=== PATIENT | female | born 1945 | race Caucasian/White ===

== ENCOUNTER 2017-03-11 09:45 | Outpatient (CLI) | payer OTHER | END 2017-03-11 19:04 | disposition home or self-care (01) | LOC: SUS 09:45 | PROVIDERS: ATTEND Internal Medicine | DX: N64.4 Mastodynia (principal) | CPT/HCPCS: 76642 ==

== ENCOUNTER 2018-06-16 11:19 | Outpatient (CLI) | payer BC | END 2018-06-16 21:06 | disposition home or self-care (01) | LOC: SMA 11:19 | PROVIDERS: ATTEND Internal Medicine | DX: Z12.31 Encounter for screening mammogram for malignant neoplasm of breast (principal) | CPT/HCPCS: 77067 ==

== ENCOUNTER 2020-08-20 16:02 | Inpatient (IN) | payer BC ==
[~2020-08-20] VITALS: Ht 152.4 cm; Wt 115.0 kg
[2020-08-20 16:20] VITALS: BP_SYST 219
[2020-08-20 16:51] LABS: BASOPHILS % (AUTO) 0.7 % (0.0-2.0); EOSINOPHILS # (AUTO) 0.1 K/uL (0.0-0.4); EOSINOPHILS % (AUTO) 2.1 % (0.0-4.0); HEMATOCRIT 38.6 % (36-48); HEMOGLOBIN 12.5 g/dL (12.0-16.0); LYMPHOCYTES # (AUTO) 2.1 K/uL (1.0-5.5); MEAN CORPUSCULAR HEMOGLOBIN 28 pg (27-31); MEAN CORPUSCULAR HGB CONC 33 % (32-36); MEAN CORPUSCULAR VOLUME 87 fL (79.0-98.0); MONOCYTES # (AUTO) 0.6 K/uL (0.0-1.0); MONOCYTES % (AUTO) 9.3 % (1.7-9.3); NEUTROPHILS % (AUTO) 57.9 % (40.0-70.0); PLATELET COUNT (AUTO) 230 K/uL (130-430); RED BLOOD CELL COUNT(AUTO) 4.46 MIL/uL (4.2-6.2); RED CELL DISTRIBUTION WIDTH 15.7 % (9.0-15.0); WHITE BLOOD COUNT (AUTO) 6.8 K/uL (4.8-10.8)
[2020-08-20 16:59] LABS: ANION GAP -1 (5-15); CHLORIDE 104 mmol/L (98-107); CREATININE 0.95 mg/dL (0.55-1.30); GLUCOSE 99 mg/dL (70-99); SODIUM SERUM 142 mmol/L (136-145); UREA NITROGEN, BLOOD 18 mg/dL (8-21)
[2020-08-20] MEDS ORDERED: FUROSEMIDE 40 MG/4 ML VIAL IVP ONE (17:00)
[2020-08-20 17:06] LABS: ALANINE AMINOTRANSFERASE 38 U/L (12-78); ALBUMIN 3.2 g/dL (3.4-4.8); ASPARTATE AMINOTRANSFERASE 27 U/L (10-37); TOTAL BILIRUBIN 0.3 mg/dL (0.0-1.0)
[2020-08-20] MEDS ORDERED: IOHEXOL 350 mgI/mL, 150 ML INFUS..BTL IV ONE (18:05)
[2020-08-20] MEDS ORDERED: methylPREDNISolone SOD SUCC/PF 62.5 MG/ML VIAL IVP ONE (19:15)
[2020-08-20 20:49] VITALS: BP_SYST 158
[2020-08-20] MEDS ORDERED: ALBUTEROL SULFATE 0.083% 2.5 MG/3 ML VIAL.NEB INH PRN (23:30)
[2020-08-20] MEDS ORDERED: HYDROcodone/ACETAMIN 5-325 MG TAB (NORCO/ VICODIN) PO PRN (23:30)
[2020-08-20] MEDS ORDERED: NALOXONE HCL 0.4 MG/ML AMP (NARCAN) IVP PRN (23:30)
[2020-08-21] VITALS: BP_SYST 145
[2020-08-21] MEDS ORDERED: AZITHROMYCIN 500 MG in NS 250 ML IV ONE ×2
[2020-08-21] MEDS ORDERED: AZITHROMYCIN 500 MG/VIAL (ZITHROMAX) IV ONE (00:13)
[2020-08-21] MEDS ORDERED: hydrALAZINE HCL 25 MG TABLET PO ONE (02:15)
[2020-08-21 02:56] VITALS: BP_SYST 159
[2020-08-21] MEDS ORDERED: NORMAL SALINE 5 ML DISP.SYRIN IVF SCH (06:00)
[2020-08-21] MEDS: INSULIN REGULAR, HUMAN 100 UNITS/ML, 10 ML VIAL (humuLIN R) SUBCUT PRN ×2 (06:21→12:30)
[2020-08-21 06:36] LABS: BASOPHILS % (AUTO) 0.1 % (0.0-2.0); EOSINOPHILS % (AUTO) 0.1 % (0.0-4.0); HEMATOCRIT 40.3 % (36-48); HEMOGLOBIN 12.8 g/dL (12.0-16.0); LYMPHOCYTES # (AUTO) 0.7 K/uL (1.0-5.5); LYMPHOCYTES % (AUTO) 8.5 % (20.5-51.5); MEAN CORPUSCULAR HEMOGLOBIN 28 pg (27-31); MEAN CORPUSCULAR HGB CONC 32 % (32-36); MEAN CORPUSCULAR VOLUME 88 fL (79.0-98.0); MONOCYTES # (AUTO) 0.1 K/uL (0.0-1.0); MONOCYTES % (AUTO) 0.9 % (1.7-9.3); NEUTROPHILS # (AUTO) 7.2 K/uL (1.8-7.7); NEUTROPHILS % (AUTO) 90.4 % (40.0-70.0); PLATELET COUNT (AUTO) 237 K/uL (130-430); RED BLOOD CELL COUNT(AUTO) 4.58 MIL/uL (4.2-6.2)
[2020-08-21 07:44] LABS: ALANINE AMINOTRANSFERASE 35 U/L (12-78); ALBUMIN 2.8 g/dL (3.4-4.8); ANION GAP 6 (5-15); ASPARTATE AMINOTRANSFERASE 27 U/L (10-37); CALCIUM 8.7 mg/dL (8.4-11.0); CHLORIDE 104 mmol/L (98-107); CREATININE 0.91 mg/dL (0.55-1.30); GLUCOSE 253 mg/dL (70-99); POTASSIUM 4.1 mmol/L (3.5-5.1); SODIUM SERUM 145 mmol/L (136-145); TOTAL BILIRUBIN 0.2 mg/dL (0.0-1.0); UREA NITROGEN, BLOOD 21 mg/dL (8-21)
[2020-08-21 08:00] VITALS: BP_SYST 136
[2020-08-21] MEDS ORDERED: ACETAMINOPHEN 325 MG TABLET PO PRN (08:45)
[2020-08-21] MEDS ORDERED: ALBUTEROL SULFATE 0.083% 2.5 MG/3 ML VIAL.NEB INH PRN (08:45)
[2020-08-21] MEDS ORDERED: ONDANSETRON HCL 4 MG/2 ML VIAL IVP PRN (08:45)
[2020-08-21] MEDS ORDERED: METOPROLOL TARTRATE 25 MG TABLET PO ONE (09:00)
[2020-08-21] MEDS ORDERED: methylPREDNISolone SOD SUCC 40 MG/ML VIAL IVP ONE (09:00)
[2020-08-21] MEDS ORDERED: cefTRIAXone 1 GM IVPB PREMIX 50 ML IV SCH (09:00)
[2020-08-21] MEDS ORDERED: FUROSEMIDE 20 MG/2 ML VIAL IVP SCH ×2 (09:00→21:00)
[2020-08-21] MEDS ORDERED: FAMOTIDINE 20 MG TABLET PO ONE (09:00)
[2020-08-21] MEDS ORDERED: FUROSEMIDE 20 MG/2 ML VIAL IVP ONE (09:00)
[2020-08-21] MEDS ORDERED: ENOXAPARIN SODIUM 40 MG/0.4 ML SYRINGE SUBCUT ONE (09:00)
[2020-08-21 12:00] VITALS: BP_SYST 127
[2020-08-21] MEDS ORDERED: HYDR-4038 PO (12:01)
[2020-08-21] MEDS ORDERED: CALCIUM PO (12:01)
[2020-08-21] MEDS ORDERED: GLIP5TAB13 PO (12:01)
[2020-08-21] MEDS ORDERED: GLU500 PO (12:01)
[2020-08-21] MEDS ORDERED: METF1000 PO (12:01)
[2020-08-21] MEDS ORDERED: CHOL200019 PO (12:01)
[2020-08-21] MEDS ORDERED: SIMV-43 PO (12:03)
[2020-08-21] MEDS ORDERED: VALS320T2 PO (12:03)
[2020-08-21] MEDS ORDERED: MULT-1089 PO (12:03)
[2020-08-21] MEDS ORDERED: HYDR25TA4 PO (12:03)
[2020-08-21 14:24] VITALS: BP_SYST 127
[2020-08-21] MEDS ORDERED: ALBMDI INH (14:52)
[2020-08-21] MEDS ORDERED: FURO-150 PO (14:52)
[2020-08-21] MEDS ORDERED: AZIT500T3 PO (14:52)
[2020-08-21] MEDS ORDERED: hydrALAZINE HCL 25 MG TABLET PO SCH (15:00)
[2020-08-21] MEDS ORDERED: metFORMIN HCL 500 MG TABLET PO SCH (18:00)
[2020-08-21] MEDS ORDERED: AZITHROMYCIN 500 MG in NS 250 ML IV SCH (21:00)
[2020-08-21] MEDS ORDERED: METOPROLOL TARTRATE 25 MG TABLET PO SCH (21:00)
[2020-08-21] MEDS ORDERED: methylPREDNISolone SOD SUCC 40 MG/ML VIAL IVP SCH (21:00)
[2020-08-21] MEDS ORDERED: SIMVASTATIN 20 MG TABLET PO SCH (21:00)
[2020-08-22] MEDS ORDERED: VALSARTAN 160 MG TABLET (DIOVAN) PO SCH (09:00)
[2020-08-22] MEDS ORDERED: LOSARTAN POTASSIUM 50 MG TABLET (COZAAR) PO SCH (09:00)
[2020-08-22] MEDS ORDERED: ENOXAPARIN SODIUM 40 MG/0.4 ML SYRINGE SUBCUT SCH (09:00)
[2020-08-22] MEDS ORDERED: FUROSEMIDE 40 MG TABLET PO SCH (09:00)
[2020-08-22] MEDS ORDERED: HYDROCHLOROTHIAZIDE 25 MG TABLET (HCTZ) PO SCH (09:00)
[2020-08-22] MEDS ORDERED: FAMOTIDINE 20 MG TABLET PO SCH (09:00)
[2020-08-22] MEDS ORDERED: metFORMIN HCL 500 MG TABLET PO SCH (09:00)
== END 2020-08-21 15:05 | disposition home or self-care (01) | DRG 206 ==
LOC: SED 16:02 → STU 20:16
PROVIDERS: ADMIT Internal Medicine Hospice and Palliative Medicine; ATTEND Internal Medicine Hospice and Palliative Medicine
DX: M94.0 Chondrocostal junction syndrome [Tietze] (principal); E87.1 Hypo-osmolality and hyponatremia; Z68.42 Body mass index [BMI] 45.0-49.9, adult; E46 Unspecified protein-calorie malnutrition; E44.1 Mild protein-calorie malnutrition; E11.9 Type 2 diabetes mellitus without complications; J45.909 Unspecified asthma, uncomplicated; I45.10 Unspecified right bundle-branch block; E66.01 Morbid (severe) obesity due to excess calories; G47.30 Sleep apnea, unspecified; I11.0 Hypertensive heart disease with heart failure; I50.9 Heart failure, unspecified; Z20.822 Contact with and (suspected) exposure to COVID-19; E78.5 Hyperlipidemia, unspecified; R09.02 Hypoxemia; R06.89 Other abnormalities of breathing
CPT/HCPCS: 36415; 71045; 71275; 76376; 80053; 82550; 82962; 83036; 83880; 84134; 84484; 85025; 85379; 93005; 93970; 96374; 96375; 99285; G0378; J0456; J0696; J1030; J1650; J1815; J1940; J2930; J7050; Q9967; U0003

== ENCOUNTER 2023-06-02 12:41 | Inpatient (IN) | payer OTHER, MEDICAID ==
[~2023-06-02] VITALS: Ht 162.6 cm; Wt 108.9 kg
[~2023-06-02 12:41] MED LIST: ALBMDI INH; ASPI-859 PO; CALC-939 PO; CALCIUM PO; CARV3.1246 PO; CHOL200019 PO; CLOP75TA32 PO; FURO-149 PO; GLIP5TAB13 PO; GLU500 PO; HYDR-4038 PO; HYDR25TA4 PO; LIP40 PO; LOSA-415 PO; METF1000 PO; MULT-1089 PO; POTA8TAB66 PO
[2023-06-02 13:00] VITALS: BP_SYST 137; PULSE 68; RESP 18; TEMP 97; O2SAT 74
[2023-06-02] MEDS ORDERED: LevALBUTEROL HCL 1.25 MG/0.5 ML *CONC.* VIAL.NEB (XOPENEX CONC.) INH ONE (14:21)
[2023-06-02 15:11] LABS: BASOPHILS % (AUTO) 0.7 % (0.0-2.0); EOSINOPHILS # (AUTO) 0.1 K/uL (0.0-0.4); EOSINOPHILS % (AUTO) 2.1 % (0.0-4.0); HEMATOCRIT 40.4 % (36-48); HEMOGLOBIN 12.8 g/dL (12.0-16.0); LYMPHOCYTES # (AUTO) 1.6 K/uL (1.0-5.5); LYMPHOCYTES % (AUTO) 28.5 % (20.5-51.5); MEAN CORPUSCULAR HEMOGLOBIN 28 pg (27-31); MEAN CORPUSCULAR HGB CONC 32 % (32-36); MEAN CORPUSCULAR VOLUME 87 fL (79.0-98.0); MONOCYTES # (AUTO) 0.6 K/uL (0.0-1.0); MONOCYTES % (AUTO) 11.3 % (1.7-9.3); NEUTROPHILS # (AUTO) 3.3 K/uL (1.8-7.7); NEUTROPHILS % (AUTO) 57.4 % (40.0-70.0); PLATELET COUNT (AUTO) 188 K/uL (130-430); RED BLOOD CELL COUNT(AUTO) 4.62 MIL/uL (4.2-6.2); RED CELL DISTRIBUTION WIDTH 16.8 % (9.0-15.0); WHITE BLOOD COUNT (AUTO) 5.7 K/uL (4.8-10.8)
[2023-06-02] MEDS: DEXAMETHASONE SOD PHOSPHATE 10 MG/ML VIAL IVP ONE (15:30)
[2023-06-02] MEDS: KETOROLAC TROMETHAMINE 30 MG VIAL IVP ONE (15:30)
[2023-06-02 15:35] LABS: ANION GAP 4 (5-15); CARBON DIOXIDE 35 mmol/L (23-29); CHLORIDE 106 mmol/L (98-107); GLUCOSE 159 mg/dL (74-106); POTASSIUM 4.8 mmol/L (3.5-5.1); SODIUM SERUM 145 mmol/L (136-145); UREA NITROGEN, BLOOD 20 mg/dL (8-21)
[2023-06-02 15:43] LABS: ALANINE AMINOTRANSFERASE 31 U/L (12-78); ASPARTATE AMINOTRANSFERASE 19 U/L (10-37); BILIRUBIN,DIRECT 0.2 mg/dL (0.0-0.3); TOTAL BILIRUBIN 0.5 mg/dL (0.0-1.0)
[2023-06-02 16:04] LABS: INR 1.1 (0.8-1.2); PROTHROMBIN TIME 11.1 SECS (9.5-12.5)
[2023-06-02 16:25] LABS: INFLUENZA TYPE A Negative (NEGATIVE); INFLUENZA TYPE B NEGATIVE (NEGATIVE)
[2023-06-02 16:32] LABS: BILIRUBIN,URINE NEGATIVE (NEGATIVE); BLOOD, URINE NEGATIVE (NEGATIVE); CLARITY/URINE CLOUDY (CLEAR); COLOR,URINE YELLOW (YELLOW); GLUCOSE,URINE 3+ (NEGATIVE); KETONES,URINE NEGATIVE (NEGATIVE); LEUKOCYTE ESTERASE ,URINE NEGATIVE (NEGATIVE); NITRITE, URINE NEGATIVE (NEGATIVE); PROTEIN URINE 2+ (NEGATIVE); UROBILINOGEN,URINE 0.2 (0.2-1.0)
[2023-06-02] MEDS: LevALBUTEROL HCL 1.25 MG/0.5 ML *CONC.* VIAL.NEB (XOPENEX CONC.) INH ONE (16:36)
[2023-06-02 16:38] VITALS: BP_SYST 154; PULSE 66; O2SAT 95
[2023-06-02] MEDS ORDERED: CARV12.548 PO (16:42)
[2023-06-02] MEDS ORDERED: VALS320T16 PO (16:42)
[2023-06-02] MEDS ORDERED: ASPI-1393 PO (16:42)
[2023-06-02] MEDS ORDERED: DAPA10TA PO (16:42)
[2023-06-02] MEDS ORDERED: POTA-178 PO (16:42)
[2023-06-02] MEDS ORDERED: FURO40TA5 PO (16:42)
[2023-06-02] MEDS ORDERED: VITD2000 PO (16:42)
[2023-06-02] MEDS ORDERED: METF-381 PO (16:42)
[2023-06-02] MEDS ORDERED: ATOR40TA68 PO (16:45)
[2023-06-02] MEDS ORDERED: HYDR-4039 PO (16:45)
[2023-06-02] MEDS ORDERED: GLIP-201 PO (16:46)
[2023-06-02] MEDS ORDERED: AZITHROMYCIN 500 MG/VIAL (ZITHROMAX) IV ONE ×2 (16:49→20:05)
[2023-06-02] MEDS ORDERED: AZITHROMYCIN 250 MG in NS 250 ML IV SCH (17:00)
[2023-06-02 17:13] LABS: RBC,URINE 0-3 /HPF (0-3); WBC,URINE 50-80 /HPF (0-3)
[2023-06-02 17:14] LABS: BACTERIA,URINE MANY /HPF (None Seen); MUCUS,URINE None Seen /LPF (None Seen)
[2023-06-02] MEDS: METHYLPREDNISOLONE SOD SUCC 40 MG/ML VIAL IVP ONE (17:21)
[2023-06-02] MEDS: FUROSEMIDE 40 MG/4 ML VIAL IVP ONE (17:21)
[2023-06-02] MEDS: AZITHROMYCIN 500 MG in NS 250 ML IV SCH (17:23)
[2023-06-02] MEDS: cefTRIAXone 1 GM IVPB PREMIX 50 ML IV SCH (20:05)
[2023-06-02 20:10] VITALS: O2SAT 95
[2023-06-02] MEDS: IPRATROPIUM/ALBUTEROL SULFATE 3 ML AMPUL.NEB (DUONEB) INH SCH (20:28)
[2023-06-02] MEDS: METHYLPREDNISOLONE SOD SUCC 40 MG/ML VIAL IVP SCH (21:21)
[2023-06-02 23:00] VITALS: O2SAT 96
[2023-06-03] VITALS (11 sets, daily range): BP systolic 126–158; PULSE 67–77; RESP 16–24; TEMP 96.9–98.7; O2SAT 92–97
[2023-06-03] MEDS ORDERED: METHYLPREDNISOLONE SOD SUCC 40 MG/ML VIAL ONE (06:19)
[2023-06-03] MEDS ORDERED: ALBUTEROL MDI INHALATION 8 GM INH INH SCH (10:00)
[2023-06-03] MEDS ORDERED: BUMEX 1 MG/4 ML VIAL IVP ONE (10:00)
[2023-06-03] MEDS ORDERED: hydrALAZINE HCL 25 MG TABLET PO PRN (11:30)
[2023-06-03] MEDS ORDERED: ALBUTEROL SULFATE 0.083% 2.5 MG/3 ML VIAL.NEB INH PRN (12:15)
[2023-06-03 14:38] LABS: ABG O2 SAT% ESTIMATE 94.8 % (94.0-100.0); BLOOD GAS BASE EXCESS 2.5 mmol/L (-3.0-3.0); BLOOD GAS HCO3 30.6 mmol/L (21.0-27.0); BLOOD GAS PO2 81.6 mmHg (75.0-100.0)
[2023-06-03 14:42] LABS: ALLEN'S TEST POSITIVE (P); BLOOD GAS PCO2 62.1 mmHg (35.0-45.0)
[2023-06-03] MEDS ORDERED: hydrALAZINE HCL 25 MG TABLET PO SCH ×2 (15:00)
[2023-06-03] MEDS: metFORMIN HCL 500 MG TABLET PO SCH (18:06)
[2023-06-03] MEDS: BUMEX 1 MG/4 ML VIAL IVP SCH (18:25)
[2023-06-03] MEDS: CARVEDILOL 12.5 MG TABLET (COREG) PO SCH (20:37)
[2023-06-03] MEDS: POTASSIUM CHLORIDE 10 MEQ TABLET.ER PO SCH (20:37)
[2023-06-03] MEDS: LOSARTAN POTASSIUM 50 MG TABLET (COZAAR) PO SCH (20:37)
[2023-06-03] MEDS: METHYLPREDNISOLONE SOD SUCC 40 MG/ML VIAL IVP SCH (20:38)
[2023-06-03] MEDS ORDERED: CARVEDILOL 3.125 MG TABLET (COREG) PO SCH (21:00)
[2023-06-03] MEDS ORDERED: glipiZIDE XL 5 MG TAB ( GLUCOTROL XL) PO SCH (21:00)
[2023-06-04] VITALS (10 sets, daily range): BP systolic 111–153; PULSE 62–81; RESP 14–20; TEMP 97.1–97.9; O2SAT 93–99
[2023-06-04 05:47] LABS: HEMATOCRIT 39.9 % (36-48); HEMOGLOBIN 12.6 g/dL (12.0-16.0); LYMPHOCYTES % (AUTO) 14.2 % (20.5-51.5); MEAN CORPUSCULAR HEMOGLOBIN 27 pg (27-31); MEAN CORPUSCULAR HGB CONC 32 % (32-36); MEAN CORPUSCULAR VOLUME 87 fL (79.0-98.0); MONOCYTES # (AUTO) 0.2 K/uL (0.0-1.0); MONOCYTES % (AUTO) 2.4 % (1.7-9.3); NEUTROPHILS # (AUTO) 5.7 K/uL (1.8-7.7); NEUTROPHILS % (AUTO) 83.4 % (40.0-70.0); PLATELET COUNT (AUTO) 195 K/uL (130-430); RED BLOOD CELL COUNT(AUTO) 4.61 MIL/uL (4.2-6.2); RED CELL DISTRIBUTION WIDTH 16.7 % (9.0-15.0); WHITE BLOOD COUNT (AUTO) 6.9 K/uL (4.8-10.8)
[2023-06-04 06:13] LABS: ANION GAP 4 (5-15); CALCIUM 8.7 mg/dL (8.4-11.0); CARBON DIOXIDE 33 mmol/L (23-29); CHLORIDE 104 mmol/L (98-107); CREATININE 1.03 mg/dL (0.55-1.30); GLUCOSE 256 mg/dL (74-106); POTASSIUM 5.4 mmol/L (3.5-5.1); SODIUM SERUM 141 mmol/L (136-145); UREA NITROGEN, BLOOD 41 mg/dL (8-21)
[2023-06-04] MEDS ORDERED: HYDROCHLOROTHIAZIDE 25 MG TABLET (HCTZ) PO SCH (09:00)
[2023-06-04] MEDS ORDERED: POTASSIUM CHLORIDE 8 MEQ TABLET.ER PO SCH (09:00)
[2023-06-04] MEDS ORDERED: ASPIRIN 81 MG TABLET(ECOTRIN) PO SCH (09:00)
[2023-06-04] MEDS ORDERED: ATORVASTATIN 20 MG TABLET PO SCH (09:00)
[2023-06-04] MEDS: ASPIRIN 81 MG TABLET(ECOTRIN) PO SCH (09:09)
[2023-06-04] MEDS: CLOPIDOGREL BISULFATE 75 MG TABLET PO SCH (09:09)
[2023-06-04] MEDS: CALCIUM CARBONATE/VITAMIN D3 1 TAB TABLET PO SCH (09:09)
[2023-06-04] MEDS: ATORVASTATIN 20 MG TABLET PO SCH (09:09)
[2023-06-04] MEDS: CHOLECALCIFEROL (VITAMIN D3) 2,000 UNIT TABLET PO SCH (09:09)
[2023-06-04] MEDS: MULTIVITAMINS TAB 1 TABLET PO SCH (09:10)
[2023-06-04] MEDS: metFORMIN HCL 500 MG TABLET PO SCH (09:11)
[2023-06-04] MEDS: INSULIN REGULAR, HUMAN 100 UNITS/ML, 3 ML VIAL (humuLIN R) SUBCUT PRN (11:33)
[2023-06-04] MEDS: MEROPENEM 500 MG in NS 50 ML IV SCH (13:32)
[2023-06-04] MEDS: METHYLPREDNISOLONE SOD SUCC 40 MG/ML VIAL IVP SCH (21:32)
[2023-06-05] VITALS (10 sets, daily range): BP systolic 127–145; PULSE 69–74; RESP 18–20; TEMP 97.3–98.1; O2SAT 93–98
[2023-06-05 06:02] LABS: BASOPHILS % (AUTO) 0.1 % (0.0-2.0); HEMATOCRIT 43.8 % (36-48); HEMOGLOBIN 13.7 g/dL (12.0-16.0); MEAN CORPUSCULAR HEMOGLOBIN 27 pg (27-31); MEAN CORPUSCULAR HGB CONC 31 % (32-36); MEAN CORPUSCULAR VOLUME 86 fL (79.0-98.0); MONOCYTES # (AUTO) 0.1 K/uL (0.0-1.0); NEUTROPHILS # (AUTO) 5.8 K/uL (1.8-7.7); NEUTROPHILS % (AUTO) 83.9 % (40.0-70.0); PLATELET COUNT (AUTO) 198 K/uL (130-430); RED BLOOD CELL COUNT(AUTO) 5.08 MIL/uL (4.2-6.2); RED CELL DISTRIBUTION WIDTH 16.4 % (9.0-15.0); WHITE BLOOD COUNT (AUTO) 6.9 K/uL (4.8-10.8)
[2023-06-05 08:22] LABS: ANION GAP 5 (5-15); CALCIUM 8.4 mg/dL (8.4-11.0); CARBON DIOXIDE 32 mmol/L (23-29); CHLORIDE 104 mmol/L (98-107); CREATININE 0.92 mg/dL (0.55-1.30); GLUCOSE 238 mg/dL (74-106); POTASSIUM 4.8 mmol/L (3.5-5.1); SODIUM SERUM 141 mmol/L (136-145); UREA NITROGEN, BLOOD 38 mg/dL (8-21)
[2023-06-05] MEDS: metOLazone 5 MG TABLET PO ONE (12:37)
[2023-06-05] MEDS: FUROSEMIDE 40 MG/4 ML VIAL IVP ONE (12:37)
[2023-06-06] VITALS (11 sets, daily range): BP systolic 140–152; PULSE 54–73; RESP 16–18; TEMP 96.4–98.4; O2SAT 90–96
[2023-06-06 05:19] LABS: ANION GAP 7 (5-15); CALCIUM 9.6 mg/dL (8.4-11.0); CARBON DIOXIDE 38 mmol/L (23-29); CHLORIDE 100 mmol/L (98-107); CREATININE 1.01 mg/dL (0.55-1.30); GLUCOSE 255 mg/dL (74-106); POTASSIUM 4.3 mmol/L (3.5-5.1); SODIUM SERUM 145 mmol/L (136-145); UREA NITROGEN, BLOOD 43 mg/dL (8-21)
[2023-06-06 05:33] LABS: BASOPHILS % (AUTO) 0.2 % (0.0-2.0); EOSINOPHILS % (AUTO) 0.1 % (0.0-4.0); HEMATOCRIT 43.9 % (36-48); HEMOGLOBIN 13.9 g/dL (12.0-16.0); LYMPHOCYTES % (AUTO) 15.2 % (20.5-51.5); MEAN CORPUSCULAR HEMOGLOBIN 27 pg (27-31); MEAN CORPUSCULAR HGB CONC 32 % (32-36); MEAN CORPUSCULAR VOLUME 86 fL (79.0-98.0); MONOCYTES # (AUTO) 0.1 K/uL (0.0-1.0); MONOCYTES % (AUTO) 1.4 % (1.7-9.3); NEUTROPHILS # (AUTO) 5.2 K/uL (1.8-7.7); NEUTROPHILS % (AUTO) 83.1 % (40.0-70.0); PLATELET COUNT (AUTO) 189 K/uL (130-430); RED BLOOD CELL COUNT(AUTO) 5.12 MIL/uL (4.2-6.2); RED CELL DISTRIBUTION WIDTH 16.5 % (9.0-15.0); WHITE BLOOD COUNT (AUTO) 6.3 K/uL (4.8-10.8)
[2023-06-06] MEDS: metOLazone 5 MG TABLET PO SCH (09:04)
[2023-06-06] MEDS: metOLazone 5 MG TABLET ONE (09:04)
[2023-06-06 14:47] LABS: BASOPHILS % (AUTO) 0.2 % (0.0-2.0); EOSINOPHILS % (AUTO) 0.1 % (0.0-4.0); HEMATOCRIT 43.2 % (36-48); HEMOGLOBIN 13.8 g/dL (12.0-16.0); LYMPHOCYTES # (AUTO) 0.9 K/uL (1.0-5.5); LYMPHOCYTES % (AUTO) 13.1 % (20.5-51.5); MEAN CORPUSCULAR HEMOGLOBIN 27 pg (27-31); MEAN CORPUSCULAR HGB CONC 32 % (32-36); MEAN CORPUSCULAR VOLUME 85 fL (79.0-98.0); MONOCYTES # (AUTO) 0.3 K/uL (0.0-1.0); MONOCYTES % (AUTO) 4.5 % (1.7-9.3); NEUTROPHILS # (AUTO) 5.5 K/uL (1.8-7.7); NEUTROPHILS % (AUTO) 82.1 % (40.0-70.0); PLATELET COUNT (AUTO) 188 K/uL (130-430); RED BLOOD CELL COUNT(AUTO) 5.08 MIL/uL (4.2-6.2); RED CELL DISTRIBUTION WIDTH 16.4 % (9.0-15.0); WHITE BLOOD COUNT (AUTO) 6.7 K/uL (4.8-10.8)
[2023-06-06] MEDS: SUCRALFATE 1 GM TABLET PO SCH (16:41)
[2023-06-06] MEDS ORDERED: BUMETANIDE 1 MG TABLET PO SCH (18:00)
[2023-06-06] MEDS ORDERED: FURO40TA5 PO (18:45)
[2023-06-06] MEDS ORDERED: AUG875 PO (18:47)
[2023-06-06] MEDS ORDERED: PRED10TA PO (18:47)
[2023-06-06] MEDS ORDERED: LEVO250T73 PO (19:27)
[2023-06-07] MEDS ORDERED: METHYLPREDNISOLONE SOD SUCC 40 MG/ML VIAL IVP SCH (09:00)
== END 2023-06-06 22:24 | disposition home health service (06) | DRG 193 ==
LOC: SED 12:41 → SMU 16:25 → STU 16:42 → SMU 06-04 16:03
PROVIDERS: ADMIT Specialist; ATTEND Specialist
DX: J18.9 Pneumonia, unspecified organism (principal); I50.33 Acute on chronic diastolic (congestive) heart failure; J96.90 Respiratory failure, unspecified, unspecified whether with hypoxia or hypercapnia; J44.1 Chronic obstructive pulmonary disease with (acute) exacerbation; N39.0 Urinary tract infection, site not specified; Z68.41 Body mass index [BMI] 40.0-44.9, adult; I11.0 Hypertensive heart disease with heart failure; E78.5 Hyperlipidemia, unspecified; E11.9 Type 2 diabetes mellitus without complications; Z20.822 Contact with and (suspected) exposure to COVID-19; I27.20 Pulmonary hypertension, unspecified; E66.01 Morbid (severe) obesity due to excess calories; J45.909 Unspecified asthma, uncomplicated; G47.33 Obstructive sleep apnea (adult) (pediatric); Z91.199 Patient's noncompliance with other medical treatment and regimen due to unspecified reason
CPT/HCPCS: 36415; 36600; 71045; 80048; 80076; 81000; 81001; 81015; 82785; 82803; 82948; 83605; 83880; 84484; 85025; 85610; 85730; 86738; 87040; 87086; 87305; 93005; 93306; 94640; 94760; 97116-GP; 97530-GP; 99291; 99292; G0378; J0456; J0696; J1030; J1100; J1815; J1885; J1940; J2185; J3490; J7050; J7060; J7612